=== PATIENT | female | born 1980 | race Caucasian/White ===

== ENCOUNTER 2017-10-12 09:33 | Emergency (ER) | payer OTHER ==
[2017-10-12] MEDS ORDERED: IPRATROPIUM-ALBUTEROL 3 ML NEB INHALATION STA (10:02)
--- NOTE | 2017-10-12 10:05 | ED ---
SOB HPI - General Chief Complaint: Shortness of Breath Stated Complaint: Difficulty Breathing Time Seen by Provider: 10/12/17 09:45 Source: patient Mode of arrival: ambulatory Limitations: no limitations - History of Present Illness Initial Comments: 37 year-old female patient presents to the emergency department today for complaints of cough, congestion, and shortness of breath. Patient states she has been sick for the last week. States that she currently has sore throat and right ear pain as well. Patient states she has had some mild nasal congestion. Patient states that she has developed wheezing. She does reports smoking a half pack per day. She denies any sputum production. Denies any known fever or chills. Denies any chest pain, sweats, nausea, vomiting, dizziness, or weakness. Patient also has diabetes and has been having difficulty getting her sugars under control area she is waiting for insulin delivery. Patient denies any recent rash, abdominal pain, diarrhea, constipation, back pain, numbness, tingling, hematuria, dysuria, urinary urgency, urinary frequency, headache, visual changes, or any other complaints. - Related Data Home Medications Medication Instructions Recorded Confirmed Escitalopram [Lexapro] 20 mg PO DAILY 10/12/17 10/12/17 Gabapentin [Neurontin] 800 mg PO TID 10/12/17 10/12/17 LORazepam [Ativan] 1 mg PO TID 10/12/17 10/12/17 Previous Rx's Medication Instructions Recorded Albuterol Sulfate [Proair Hfa] 1 - 2 puff INHALATION Q6HR PRN #1 10/12/17 inhaler Allergies Allergy/AdvReac Type Severity Reaction Status Date / Time No Known Allergies Allergy Verified 10/12/17 09:50 Review of Systems ROS Statement: Those systems with pertinent positive or pertinent negative responses have been documented in the HPI. ROS Other: All systems not noted in ROS Statement are negative. 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 Vital signs upon presentation are temperature 97.2F, pulse 78, respirations 18, blood pressure 153/79, pulse ox 97% on room air.) Eye exam: Present: normal appearance, PERRL, EOMI. Absent: scleral icterus, conjunctival injection, periorbital swelling ENT exam: Present: normal exam, normal oropharynx, mucous membranes moist Respiratory exam: Present: normal lung sounds bilaterally, wheezes (Scattered worse expiratory wheezing in posterior lung hansen.). Absent: respiratory distress, rales, rhonchi, stridor Cardiovascular Exam: Present: regular rate, normal rhythm, normal heart sounds. Absent: systolic murmur, diastolic murmur, rubs, gallop, clicks GI/Abdominal exam: Present: soft, normal bowel sounds. Absent: distended, tenderness, guarding, rebound, rigid Neurological exam: Present: alert, oriented X3, CN II-XII intact Psychiatric exam: Present: normal affect, normal mood Skin exam: Present: warm, dry, intact, normal color. Absent: rash Course Vital Signs 10/12/17 10/12/17 10/12/17 09:50 10:32 10:52 Temperature 97.2 F L Pulse Rate 78 71 73 Respiratory 18 Rate Blood Pressure 153/79 O2 Sat by Pulse 97 Oximetry 10/12/17 11:56 Temperature 98.6 F Pulse Rate 72 Respiratory 17 Rate Blood Pressure 148/72 O2 Sat by Pulse 97 Oximetry Medical Decision Making - Medical Decision Making 37-year-old female patient percents to the emergency department today for evaluation of cough, wheezing, shortness of breath. Physical examination did reveal some mild scattered expiratory wheezing in the posterior lung hansen. Oxygen saturation was within normal limits. Patient's respirations are even and unlabored. Patient was afebrile vital signs are stable. Chest x-ray showed no acute cardiopulmonary process. Patient has been sick with upper respiratory symptoms for the last week. Did discuss this could be an acute bronchitis. Did discuss smoking cessation. She does have albuterol and Symbicort inhalers at home. She is instructed to continue using these as directed. She is instructed to follow-up with her primary care physician for recheck in 1-2 days. Return parameters discussed in detail. She verbalizes understanding and agrees with this plan. - Lab Data Lab Results 10/12/17 Range/Units 10:05 POC Glucose (mg/dL) 150 H (75-99) mg/dL POC Glu Jumpbasting Lining Baster ID Ale Márquez - Radiology Data Radiology results: report reviewed, image reviewed Two-view x-ray of the chest shows lungs are clear. Pleural spaces are clear. Heart size is normal. Impression by Dr. Aguayo shows normal chest. Disposition Clinical Impression: Acute bronchitis Disposition: HOME SELF-CARE Condition: Good Instructions: Acute Bronchitis (ED) Additional Instructions: Use inhaler as directed. Follow-up with primary care physician for recheck in 1 -2 days. Return here immediately for any new, worsening, or concerning symptoms. Prescriptions: Albuterol Sulfate [Proair Hfa] 1 - 2 puff INHALATION Q6HR PRN #1 inhaler PRN Reason: Shortness Of Breath Is patient prescribed a controlled substance at d/c from ED?: No Referrals: Negra Valerio MD [Primary Care Provider] - 1-2 days Time of Disposition: 11:33
[2017-10-12 10:07] LABS: Glucose,Whole Blood 150 mg/dL (75-99)
--- NOTE | 2017-10-12 11:27 | XR ---
EXAMINATION TYPE: XR chest 2V DATE OF EXAM ORDERED: 10/12/2017 HISTORY: Pain. REFERENCE: None. FINDINGS: The lungs are clear. Pleural spaces are clear. Heart size is normal. IMPRESSION: NORMAL CHEST.
[2017-10-12 11:57] VITALS: BP 148/72; PULSE 72; RESP 17; TEMP 98.6
== END 2017-10-12 11:58 | disposition home or self-care (01) ==
LOC: EC 09:33
DX: J20.9 Acute bronchitis, unspecified (principal); H92.01 Otalgia, right ear; J02.9 Acute pharyngitis, unspecified; R09.81 Nasal congestion; E11.9 Type 2 diabetes mellitus without complications; F32.9 Major depressive disorder, single episode, unspecified; F41.9 Anxiety disorder, unspecified; F17.210 Nicotine dependence, cigarettes, uncomplicated; Z79.899 Other long term (current) drug therapy; Z85.828 Personal history of other malignant neoplasm of skin; Z98.890 Other specified postprocedural states
CPT/HCPCS: 36415; 71046; 94640; 99285

== ENCOUNTER 2017-10-13 12:19 | Inpatient (IN) | payer MEDICAID, OTHER ==
--- NOTE | 2017-10-13 13:26 | ED ---
General Adult HPI - General Chief complaint: Psychiatric Symptoms Stated complaint: Mental Health Time Seen by Provider: 10/13/17 12:35 Source: EMS, RN notes reviewed, old records reviewed Mode of arrival: EMS Limitations: no limitations - History of Present Illness Initial comments: This is a 37-year-old female the ER for evaluation. Patient presents time. [place]. Patient recently moved from relocated to the area. Patient coming in for psychiatricmedication for quite some time. - Related Data Home Medications Medication Instructions Recorded Confirmed Escitalopram [Lexapro] 20 mg PO DAILY 10/12/17 10/12/17 Gabapentin [Neurontin] 800 mg PO TID 10/12/17 10/12/17 LORazepam [Ativan] 1 mg PO TID 10/12/17 10/12/17 Previous Rx's Medication Instructions Recorded Albuterol Sulfate [Proair Hfa] 1 - 2 puff INHALATION Q6HR PRN #1 10/12/17 inhaler Allergies Allergy/AdvReac Type Severity Reaction Status Date / Time No Known Allergies Allergy Verified 10/12/17 09:50 Review of Systems ROS Statement: Those systems with pertinent positive or pertinent negative responses have been documented in the HPI. ROS Other: All systems not noted in ROS Statement are negative. 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 Absent: scleral icterus, conjunctival injection, periorbital swelling ENT exam: Present: normal exam, mucous membranes moist Neck exam: Present: normal inspection. Absent: tenderness, meningismus, lymphadenopathy Respiratory exam: Present: normal lung sounds bilaterally. Absent: respiratory distress, wheezes, rales, rhonchi, stridor Cardiovascular Exam: Present: regular rate, normal rhythm, normal heart sounds. Absent: systolic murmur, diastolic murmur, rubs, gallop, clicks GI/Abdominal exam: Present: soft, normal bowel sounds. Absent: distended, tenderness, guarding, rebound, rigid Extremities exam: Present: normal inspection, full ROM, normal capillary refill. Absent: tenderness, pedal edema, joint swelling, calf tenderness Back exam: Present: normal inspection Neurological exam: Present: alert, oriented X3, CN II-XII intact Psychiatric exam: Present: normal affect, normal mood Skin exam: Present: warm, dry, intact, normal color. Absent: rash Course Vital Signs 10/13/17 12:34 Temperature 97.1 F L Pulse Rate 91 Respiratory 20 Rate Blood Pressure 146/70 O2 Sat by Pulse 97 Oximetry - Reevaluation(s) Reevaluation #1: 10/13/17 13:26 Medically clear for psychiatric evaluation Medical Decision Making - Medical Decision Making 37 female seen and evaluated with psychiatry, will admit for psychiatric evaluation and patient treatment - Lab Data Result diagrams: 10/13/17 13:43 10/13/17 13:43 Lab Results 10/13/17 10/13/17 10/13/17 Range/Units 13:35 13:35 13:43 WBC (3.8-10.6) k/uL RBC (3.80-5.40) m/uL Hgb (11.4-16.0) gm/dL Hct (34.0-46.0) % MCV (80.0-100.0) fL MCH (25.0-35.0) pg MCHC (31.0-37.0) g/dL RDW (11.5-15.5) % Plt Count (150-450) k/uL Neutrophils % % Lymphocytes % % Monocytes % % Eosinophils % % Basophils % % Neutrophils # (1.3-7.7) k/uL Lymphocytes # (1.0-4.8) k/uL Monocytes # (0-1.0) k/uL Eosinophils # (0-0.7) k/uL Basophils # (0-0.2) k/uL Sodium 148 H (137-145) mmol/L Potassium 4.4 (3.5-5.1) mmol/L Chloride 112 H (98-107) mmol/L Carbon Dioxide 21 L (22-30) mmol/L Anion Gap 15 mmol/L BUN 16 (7-17) mg/dL Creatinine 0.60 (0.52-1.04) mg/dL Est GFR (CKD-EPI)AfAm >90 (>60 ml/min/1.73 sqM) Est GFR (CKD-EPI)NonAf >90 (>60 ml/min/1.73 sqM) Glucose 109 H (74-99) mg/dL Calcium 9.7 (8.4-10.2) mg/dL Urine Color Light Yellow Urine Appearance Clear (Clear) Urine pH 5.5 (5.0-8.0) Ur Specific [place] 1.010 (1.001-1.035) Urine Protein Negative (Negative) Urine Glucose (UA) Negative (Negative) Urine Ketones Negative (Negative) Urine Blood Moderate H (Negative) Urine Nitrite Negative (Negative) Urine Bilirubin Negative (Negative) Urine Urobilinogen <2.0 (<2.0) mg/dL Ur Leukocyte Esterase Negative (Negative) Urine RBC 13 H (0-5) /hpf Urine WBC 2 (0-5) /hpf Ur Squamous Epith Cells 1 (0-4) /hpf Urine Bacteria Rare H (None) /hpf Urine HCG, Qual Not Detected (Not Detectd) Salicylates <1.0 mg/dL Urine Opiates Screen Not Detected (NotDetected) Ur Oxycodone Screen Not Detected (NotDetected) Urine Methadone Screen Not Detected (NotDetected) Ur Propoxyphene Screen Not Detected (NotDetected) Acetaminophen <10.0 ug/mL Ur Barbiturates Screen Not Detected (NotDetected) U Tricyclic Antidepress Not Detected (NotDetected) Ur Phencyclidine Scrn Not Detected (NotDetected) Ur Amphetamines Screen Not Detected (NotDetected) U Methamphetamines Scrn Not Detected (NotDetected) U Benzodiazepines Scrn Not Detected (NotDetected) Urine Cocaine Screen Not Detected (NotDetected) U Marijuana (THC) Screen Detected H (NotDetected) Serum Alcohol 76 mg/dL 10/13/17 Range/Units 13:43 WBC 8.2 (3.8-10.6) k/uL RBC 4.61 (3.80-5.40) m/uL Hgb 13.9 (11.4-16.0) gm/dL Hct 42.9 (34.0-46.0) % MCV 93.1 (80.0-100.0) fL MCH 30.1 (25.0-35.0) pg MCHC 32.3 (31.0-37.0) g/dL RDW 13.9 (11.5-15.5) % Plt Count 282 (150-450) k/uL Neutrophils % 50 % Lymphocytes % 37 % Monocytes % 6 % Eosinophils % 4 % Basophils % 1 % Neutrophils # 4.1 (1.3-7.7) k/uL Lymphocytes # 3.1 (1.0-4.8) k/uL Monocytes # 0.5 (0-1.0) k/uL Eosinophils # 0.3 (0-0.7) k/uL Basophils # 0.1 (0-0.2) k/uL Sodium (137-145) mmol/L Potassium (3.5-5.1) mmol/L Chloride (98-107) mmol/L Carbon Dioxide (22-30) mmol/L Anion Gap mmol/L BUN (7-17) mg/dL Creatinine (0.52-1.04) mg/dL Est GFR (CKD-EPI)AfAm (>60 ml/min/1.73 sqM) Est GFR (CKD-EPI)NonAf (>60 ml/min/1.73 sqM) Glucose (74-99) mg/dL Calcium (8.4-10.2) mg/dL Urine Color Urine Appearance (Clear) Urine pH (5.0-8.0) Ur Specific [place] (1.001-1.035) Urine Protein (Negative) Urine Glucose (UA) (Negative) Urine Ketones (Negative) Urine Blood (Negative) Urine Nitrite (Negative) Urine Bilirubin (Negative) Urine Urobilinogen (<2.0) mg/dL Ur Leukocyte Esterase (Negative) Urine RBC (0-5) /hpf Urine WBC (0-5) /hpf Ur Squamous Epith Cells (0-4) /hpf Urine Bacteria (None) /hpf Urine HCG, Qual (Not Detectd) Salicylates mg/dL Urine Opiates Screen (NotDetected) Ur Oxycodone Screen (NotDetected) Urine Methadone Screen (NotDetected) Ur Propoxyphene Screen (NotDetected) Acetaminophen ug/mL Ur Barbiturates Screen (NotDetected) U Tricyclic Antidepress (NotDetected) Ur Phencyclidine Scrn (NotDetected) Ur Amphetamines Screen (NotDetected) U Methamphetamines Scrn (NotDetected) U Benzodiazepines Scrn (NotDetected) Urine Cocaine Screen (NotDetected) U Marijuana (THC) Screen (NotDetected) Serum Alcohol mg/dL Disposition Clinical Impression: Acute anxiety, Suicidal ideation, Psychosis Disposition: TRANSFER TO PSYCH HOSP/UNIT Condition: Fair Referrals: Negra Valerio MD [Primary Care Provider] - 1-2 days
[2017-10-13] MEDS ORDERED: LORazepam 1 MG TAB PO STA (13:28)
[2017-10-13 13:46] LABS: Appearance,Urine Clear (Clear); Bacteria,Urine Rare /hpf; Bilirubin,Urine Negative (Negative); Blood,Urine Moderate (Negative); Color,Urine Light Yellow; Glucose,Urine (UA) Negative (Negative); Ketones,Urine Negative (Negative); Leukocyte Esterase,Urine Negative (Negative); Nitrite,Urine Negative (Negative); PH, Urine 5.5 (5.0-8.0); Protein,Urine Negative (Negative); RBC,Urine 13 /hpf (0-5); Squamous Epithelial Cell,Urine 1 /hpf (0-4); Urobilinogen,Urine <2.0 mg/dL (<2.0); WBC,Urine 2 /hpf (0-5)
[2017-10-13 13:48] LABS: Basophils # (A) 0.1 k/uL (0-0.2); Basophils % (A) 1 %; Eosinophils # (A) 0.3 k/uL (0-0.7); Eosinophils % (A) 4 %; HCT 42.9 % (34.0-46.0); HGB 13.9 gm/dL (11.4-16.0); Lymphocytes # (A) 3.1 k/uL (1.0-4.8); Lymphocytes % (A) 37 %; MCH 30.1 pg (25.0-35.0); MCHC 32.3 g/dL (31.0-37.0); MCV 93.1 fL (80.0-100.0); Mean Platelet Volume 7.4; Monocytes # (A) 0.5 k/uL (0-1.0); Monocytes % (A) 6 %; Neutrophils # (A) 4.1 k/uL (1.3-7.7); Neutrophils % (A) 50 %; Platelet Count 282 k/uL (150-450); RBC 4.61 m/uL (3.80-5.40); RDW 13.9 % (11.5-15.5); WBC 8.2 k/uL (3.8-10.6)
[2017-10-13 13:52] LABS: Amphetamine Screen,Urine Not Detected (NotDetected); Barbiturate Screen,Urine Not Detected (NotDetected); Benzodiazepines Screen,Urine Not Detected (NotDetected); Cocaine Screen,Urine Not Detected (NotDetected); Methadone Screen, Urine Not Detected (NotDetected); Opiate Screen,Urine Not Detected (NotDetected); Oxycodone Screen, Urine Not Detected (NotDetected); Phencyclidine Screen,Urine Not Detected (NotDetected); Tricyclic Antidepressant,Urine Not Detected (NotDetected); Urn Cannabinoid Scrn Detected (NotDetected)
[2017-10-13 14:04] LABS: Acetaminophen <10.0 ug/mL; Alcohol 76 mg/dL; Anion Gap 15 mmol/L; Blood Urea Nitrogen 16 mg/dL (7-17); Calcium 9.7 mg/dL (8.4-10.2); Carbon Dioxide 21 mmol/L (22-30); Chloride 112 mmol/L (98-107); Glucose 109 mg/dL (74-99); Potassium 4.4 mmol/L (3.5-5.1); Salicylate <1.0 mg/dL; Sodium 148 mmol/L (137-145)
[2017-10-13] MEDS ORDERED: ACETAMINOPHEN TAB 325 MG TAB PO PRN (16:23)
[2017-10-13] MEDS ORDERED: LORazepam 1 MG TAB PO PRN (16:23)
[2017-10-13] MEDS ORDERED: ZIPRASIDONE 20 MG VIAL IM PRN (16:23)
[2017-10-13] MEDS ORDERED: MAG HYDROX/AL HYDROX/SIMETH 30 ML CUP PO PRN (16:23)
[2017-10-13] MEDS ORDERED: MAGNESIUM HYDROXIDE 2,400 MG/10 ML CUP PO PRN (16:23)
[2017-10-13] MEDS ORDERED: ESCITALOPRAM 20 MG TAB PO SCH (16:30)
[2017-10-13 18:07] LABS: Glucose,Whole Blood 117 mg/dL (75-99)
[2017-10-13 18:48] VITALS: BMI 31.9
[2017-10-13] MEDS ORDERED: NICOTINE 21MG/24HR PATCH TRANSDERM SCH (20:00)
[2017-10-13 20:07] LABS: Glucose,Whole Blood 108 mg/dL (75-99)
[2017-10-13] MEDS ORDERED: traZODone HCL 100 MG TAB PO ONE (20:37)
[2017-10-13] MEDS ORDERED: PNEUMOCOCCAL VACC-PNEUMOVAX 23 25 MCG/0.5 ML VIAL IM ONE (21:00)
[2017-10-13] MEDS ORDERED: INFLUENZA VACCINE (6 MOS+) 60 MCG/0.5 ML SYRINGE IM ONE (21:00)
[2017-10-13] MEDS ORDERED: MELATONIN 3 MG TABLET PO ONE (21:20)
[2017-10-14 07:02] LABS: Glucose,Whole Blood 119 mg/dL (75-99)
[2017-10-14] MEDS ORDERED: NICOTINE 14MG/24HR PATCH TRANSDERM SCH (09:00)
[2017-10-14] MEDS ORDERED: INFLUENZA VACCINE (6 MOS+) 60 MCG/0.5 ML SYRINGE IM ONE (09:00)
[2017-10-14] MEDS ORDERED: PNEUMOCOCCAL VACC-PNEUMOVAX 23 25 MCG/0.5 ML VIAL IM ONE (09:00)
[2017-10-14] MEDS: DIVALPROEX 500 MG TABLET.DR PO SCH ×2 (09:09→22:11)
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
[2017-10-14] MEDS: NICOTINE 21MG/24HR PATCH TRANSDERM SCH (09:22)
[2017-10-14 12:50] LABS: Hemoglobin A1C 6.3 % (4.0-6.0)
[2017-10-14 13:02] LABS: Glucose,Whole Blood 121 mg/dL (75-99)
--- NOTE | 2017-10-14 13:07 | P.CONS ---
History of Present Illness - Reason for Consult Medical clearance - History of Present Illness 37-year-old female was admitted to psychiatric for for bipolar disorder. Patient denied any symptoms at this point of time but patient does have chronic multiple medical problems. Patient does have hyperlipidemia with cholesterol 120 nightly counseling was provided and patient will need light and family again about a month after diet management and he continues to elevated LDL may need statin at the time because of her multiple medical problems including diabetes mellitus and hypertension. Patient does have type 2 diabetes mellitus does have history of hypertension does have history of COPD is comparing of cough without any sputum production denied any shortness of breath patient is on Symbicort and albuterol which will be continued not require any antiemetics at this point of time patient is requesting symptomatic cough medicine. Review of Systems REVIEW OF SYSTEMS: CONSTITUTIONAL: No fever, no malaise, no fatigue. HEENT: No recent visual problems or hearing problems. Denied any sore throat. CARDIOVASCULAR: No chest pain, orthopnea, PND, no palpitations, no syncope. PULMONARY: No shortness of breath, no hemoptysis. GASTROINTESTINAL: No diarrhea, no nausea, no vomiting, no abdominal pain. Normoactive bowel sounds. NEUROLOGICAL: No headaches, no weakness, no numbness. HEMATOLOGICAL: Denies any bleeding or petechiae. GENITOURINARY: Denies any burning micturition, frequency, or urgency. MUSCULOSKELETAL/RHEUMATOLOGICAL: Denies any joint pain, swelling, or any muscle pain. ENDOCRINE: Denies any polyuria or polydipsia. The rest of the 14-point review of systems is negative. 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, scolosis History of Any Multi-Drug Resistant Organisms: None Reported Additional Past Surgical History / Comment(s): left arm Past Anesthesia/Blood Transfusion Reactions: No Reported Reaction Past Psychological History: Anxiety, Depression Smoking Status: Current every day smoker Past Alcohol Use History: None Reported Additional Past Alcohol Use History / Comment(s): occasional once a month 4 drinks Past Drug Use History: Marijuana Additional Drug Use History / Comment(s): occasional Medications and Allergies Home Medications Medication Instructions Recorded Confirmed Type Albuterol Sulfate [Proair Hfa] 1 - 2 puff INHALATION Q6HR PRN #1 10/12/17 Rx inhaler Escitalopram [Lexapro] 20 mg PO DAILY 10/12/17 10/14/17 History Gabapentin [Neurontin] 800 mg PO TID 10/12/17 10/14/17 History Budesonide/Formoterol Fumarate 2 puff INHALATION RT-BID 10/14/17 10/14/17 History [Symbicort 80-4.5 Mcg Inhaler] Hydrocodone/Acetaminophen [[place] 1 tab PO Q6HR PRN 10/14/17 10/14/17 History 5-325] Insulin Glargine [Lantus] 25 unit SQ DAILY 10/14/17 10/14/17 History Lisinopril [Prinivil] 5 mg PO DAILY 10/14/17 10/14/17 History Naproxen 500 mg PO BID 10/14/17 10/14/17 History Promethazine HCl/Codeine 10 ml PO Q6H PRN 10/14/17 10/14/17 History [Prometh-Codein 6.25-10 mg/5 ml] traZODone HCL 50 mg PO HS 10/14/17 10/14/17 History Allergies Allergy/AdvReac Type Severity Reaction Status Date / Time No Known Allergies Allergy Verified 10/12/17 09:50 Physical Exam Vitals: Vital Signs Temp Pulse Pulse Resp BP BP Pulse Ox 10/14/17 06:22 97.8 F 65 16 130/62 10/13/17 20:27 83 16 129/72 10/13/17 18:32 98 F 87 16 112/70 10/13/17 16:47 98 F 90 18 126/80 96 Intake and Output 10/13/17 10/14/17 10/14/17 22:59 06:59 14:59 Other: Weight 79.3 kg PHYSICAL EXAMINATION: GENERAL: The patient is alert and oriented x3, not in any acute distress. Well developed, well nourished. HEENT: Pupils are round and equally reacting to light. EOMI. No scleral icterus. No conjunctival pallor. Normocephalic, atraumatic. No pharyngeal erythema. No thyromegaly. CARDIOVASCULAR: S1 and S2 present. No murmurs, rubs, or gallops. PULMONARY: Chest is clear to auscultation, no wheezing or crackles. ABDOMEN: Soft, nontender, nondistended, normoactive bowel sounds. No palpable organomegaly. MUSCULOSKELETAL: No joint swelling or deformity. EXTREMITIES: No cyanosis, clubbing, or pedal edema. NEUROLOGICAL: Gross neurological examination did not reveal any focal deficits. SKIN: No rashes. Results CBC & Chem 7: 10/13/17 13:43 10/13/17 13:43 Labs: Abnormal Lab Results - Last 24 Hours (Table) 10/13/17 10/13/17 10/13/17 Range/Units 13:35 13:42 13:43 Sodium 148 H (137-145) mmol/L Chloride 112 H (98-107) mmol/L Carbon Dioxide 21 L (22-30) mmol/L Glucose 109 H (74-99) mg/dL POC Glucose (mg/dL) (75-99) mg/dL Triglycerides 326 H (<150) mg/dL Cholesterol 239 H (<200) mg/dL LDL Cholesterol, Calc 120 H (0-99) mg/dL Urine Blood Moderate H (Negative) Urine RBC 13 H (0-5) /hpf Urine Bacteria Rare H (None) /hpf U Marijuana (THC) Screen Detected H (NotDetected) 10/13/17 10/13/17 10/14/17 Range/Units 18:03 20:05 06:59 Sodium (137-145) mmol/L Chloride (98-107) mmol/L Carbon Dioxide (22-30) mmol/L Glucose (74-99) mg/dL POC Glucose (mg/dL) 117 H 108 H 119 H (75-99) mg/dL Triglycerides (<150) mg/dL Cholesterol (<200) mg/dL LDL Cholesterol, Calc (0-99) mg/dL Urine Blood (Negative) Urine RBC (0-5) /hpf Urine Bacteria (None) /hpf U Marijuana (THC) Screen (NotDetected) 10/14/17 Range/Units 13:00 Sodium (137-145) mmol/L Chloride (98-107) mmol/L Carbon Dioxide (22-30) mmol/L Glucose (74-99) mg/dL POC Glucose (mg/dL) 121 H (75-99) mg/dL Triglycerides (<150) mg/dL Cholesterol (<200) mg/dL LDL Cholesterol, Calc (0-99) mg/dL Urine Blood (Negative) Urine RBC (0-5) /hpf Urine Bacteria (None) /hpf U Marijuana (THC) Screen (NotDetected) Assessment and Plan Plan: -Cough: Secondary to chronic bronchitis with Levaquin and medics at this time point of time. -COPD without any acute exacerbation continue with inhaled steroids and albuterol. -Type 2 diabetes mellitus patient blood sugars are well controlled on home regimen which is to be continued -Hypertension: Continue with the LESTER inhibitor LESTER inhibitor is probably being used for its nephro protective properties because of her history of type 2 diabetes mellitus. -While hyperlipidemia dietary management -Marijuana use: Counseling was provided -The coronary abuse: Counseling was provided -Bipolar disorder management as per primary service -History of synovitis sarcoma of the left arm which is in remission
[2017-10-14] MEDS: guaiFENesin-DM 100-10MG/5ML 10 ML CUP PO PRN ×2 (13:22→20:23)
[2017-10-14] MEDS: HYDROcodone/APAP 5-325MG 1 EACH TAB PO PRN ×2 (13:23→19:51)
[2017-10-14 17:52] LABS: Glucose,Whole Blood 105 mg/dL (75-99)
[2017-10-14] MEDS: NAPROXEN 250 MG TAB PO SCH (20:20)
[2017-10-14 20:28] LABS: Glucose,Whole Blood 112 mg/dL (75-99)
[2017-10-14] MEDS ORDERED: QUEtiapine 50 MG TAB PO SCH (21:00)
[2017-10-14] MEDS: SYMBICORT 80-4.5 MCG INHALER INHALATION SCH (22:17)
[2017-10-15] MEDS: HYDROcodone/APAP 5-325MG 1 EACH TAB PO PRN ×4 (02:12→20:15)
[2017-10-15] MEDS: guaiFENesin-DM 100-10MG/5ML 10 ML CUP PO PRN ×3 (03:45→20:15)
[2017-10-15 05:45] LABS: Glucose,Whole Blood 138 mg/dL (75-99)
[2017-10-15] MEDS: NICOTINE 21MG/24HR PATCH TRANSDERM SCH (08:04)
[2017-10-15] MEDS: LISINOPRIL 5 MG TAB PO SCH (08:05)
[2017-10-15] MEDS: DIVALPROEX 500 MG TABLET.DR PO SCH ×2 (08:05→20:15)
[2017-10-15] MEDS: NAPROXEN 250 MG TAB PO SCH ×2 (08:05→20:14)
[2017-10-15 08:09] VITALS: RESP 18
[2017-10-15] MEDS ORDERED: INSULIN DETEMIR 100 UNIT/ML 10 ML VIAL SQ SCH (09:00)
--- NOTE | 2017-10-15 09:20 | P.PN ---
Progress Note - Text Progress Note Date: 10/15/17 Patient was seen for a follow-up examination. She said she did not sleep well last night. She also has toothache which is chronic, for which the physician who gave her physical examination ordered Blanca. Patient is asking for a higher dose. She was advised that opiates are not recommended for chronic pain and so I cannot increase the dose, but, can order Motrin. She said she doesn't want to take Motrin and will take only Blanca. She also reports of chronic pain from "fibromyalgia"and numbness of her left fourth and fifth digits of the hand from surgery on her forearm. She insists that Neurontin helps with the numbness also. This is a white ambulatory female with good hygiene. He does not show any psychomotor agitation or retardation. Her speech is spontaneous and goal- directed. Her mood is cheerful and affect is appropriate. But she says her pain is about 7 or 8 out of 10. She continues to deny suicide and homicide thoughts. She denies hallucinations and delusional thinking. Her sensorium is clear. Plan: Increase Seroquel 200 mg at bedtime, restart on Neurontin 800 mg 3 times a day, continue groups and other therapies, patient was advised to discuss her discharge planning with social media strategist since she is homeless.
[2017-10-15] MEDS: GABAPENTIN 400 MG CAP PO SCH ×3 (09:26→21:51)
[2017-10-15] MEDS: SYMBICORT 80-4.5 MCG INHALER INHALATION SCH ×2 (09:31→21:11)
[2017-10-15 12:56] LABS: Glucose,Whole Blood 104 mg/dL (75-99)
[2017-10-15] MEDS: INSULIN ASPART 100 UNIT/ML 1 ML 10 ML VIAL SQ SCH ×3 (13:06→21:53)
[2017-10-15 17:34] LABS: Glucose,Whole Blood 108 mg/dL (75-99)
[2017-10-15 20:31] LABS: Glucose,Whole Blood 114 mg/dL (75-99)
[2017-10-15] MEDS ORDERED: QUEtiapine 100 MG TAB PO SCH (21:00)
[2017-10-16] MEDS: guaiFENesin-DM 100-10MG/5ML 10 ML CUP PO PRN (03:23)
[2017-10-16] MEDS: HYDROcodone/APAP 5-325MG 1 EACH TAB PO PRN ×2 (03:24→09:21)
[2017-10-16 06:12] LABS: Glucose,Whole Blood 140 mg/dL (75-99)
[2017-10-16 06:37] VITALS: TEMP 98
[2017-10-16] MEDS: INSULIN ASPART 100 UNIT/ML 1 ML 10 ML VIAL SQ SCH (07:49)
[2017-10-16] MEDS: NICOTINE 21MG/24HR PATCH TRANSDERM SCH (07:58)
[2017-10-16] MEDS: GABAPENTIN 400 MG CAP PO SCH (07:59)
[2017-10-16] MEDS: NAPROXEN 250 MG TAB PO SCH (07:59)
[2017-10-16] MEDS: LISINOPRIL 5 MG TAB PO SCH (08:00)
[2017-10-16] MEDS: DIVALPROEX 500 MG TABLET.DR PO SCH (08:00)
[2017-10-16 08:54] VITALS: BP 117/61; PULSE 83
[2017-10-16] MEDS: SYMBICORT 80-4.5 MCG INHALER INHALATION SCH (08:57)
--- NOTE | 2017-10-16 09:30 | P.DS ---
Providers Date of admission: 10/13/17 16:13 Expected date of discharge: 10/16/17 Attending physician: Vlad Sutton Consults: 10/13/17 17:29 Consult Physician Routine Consulting Provider: Hali Leach Consult Reason/Comments: H&P for mental health admission Do you want consulting provider notified?: Yes Primary care physician: [facility] Course: Patient had her psychiatric evaluation, physical examination and psychosocial evaluation. After psychiatric evaluation it was agreed to start her on Seroquel 50 mg at bedtime and Depakote 500 mg twice a day for "mood stabilization". Patient did not sleep well on 50 mg of Seroquel and so it was increased to 100 mg at bedtime. With this she was able to sleep well. Patient continued to request/demand narcotics benzodiazepines for pain, anxiety etc. She also demanded to be on Neurontin 800 mg 3 times a day which she said was taking prior to coming to hospital. Apparently she reported to the doctor who gave her physical examination that she was on insulin for diabetes even though her blood sugar was not more than 150 here at the hospital and insulin was prescribed, convinced or demanded to be on narcotics at the same time with the complaint of to take from a root canal that was done many years ago. She also demanded to be on narcotics when she leaves the hospital. She was advised that I cannot do this since it is for a chronic condition of tooth which cannot be saved and she needs to decide whether she would get the tooth extracted or get it repaired which she needs to discuss with her dentist. She reluctantly agreed. She was quite demanding with her request for drugs with abuse potential. However she became free of "suicide thoughts", said she made up with her boyfriend, has a place to live now and is ready to go home. In view of all these it was agreed to discharge her. Condition on discharge: This is a white ambulatory female with good hygiene. She does not show any psychomotor agitation or retardation. Her speech is spontaneous relevant and goal-directed. Her mood is cheerful and affect is appropriate. She denies hallucinations, delusional thinking, suicide and homicide thoughts. She is well oriented with good memory concentration general knowledge etc. her insight and judgment have improved. However she is demanding to be on narcotics and benzodiazepines. Diagnosis on discharge: Adjustment disorder, unspecified F 43.20. Cannabis use disorder severe F 12.20. Alcohol use disorder moderate F 10.20. 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 Probable malingering Z 76.5. Patient was advised and agreed to take her medications as prescribed, not to drive or operate missionary if she feels sleepy, not to drink alcohol or abuse drugs, to seek counseling regarding drugs and alcohol and to learn better coping skills, to inform her doctor if she gets , get CBC, AST, ALT and Depakote level next week 10 hours after the last dose of Depakote, to call her psychiatrist or therapist if she gets suicidal thoughts or her mood gets labile and if he cannot get hold of them to go to the nearest ER. Patient Condition at Discharge: Stable Plan - Discharge Summary Discharge Rx Participant: No New Discharge Prescriptions: New Divalproex [Depakote] 500 mg PO BID 30 Days #60 tablet. Gabapentin [Neurontin] 800 mg PO TID 30 Days #90 cap guaiFENesin-DM 100-10MG/5ML [Robitussin DM] 10 ml PO Q6H PRN cup PRN Reason: Cough Lisinopril [Zestril] 5 mg PO DAILY 30 Days #30 tab Naproxen [Naprosyn] 500 mg PO BID 30 Days #60 tab QUEtiapine [SEROquel] 100 mg PO HS 30 Days #30 tab Continue Albuterol Sulfate [Proair Hfa] 1 - 2 puff INHALATION Q6HR PRN 30 Days #1 inhaler PRN Reason: Shortness Of Breath Budesonide/Formoterol Fumarate [Symbicort 80-4.5 Mcg Inhaler] 2 puff INHALATION RT-BID 30 Days #2 hfa.aer.ad Insulin Glargine [Lantus] 25 unit SQ DAILY 30 Days #2 vial Discontinued Escitalopram [Lexapro] 20 mg PO DAILY Gabapentin [Neurontin] 800 mg PO TID Hydrocodone/Acetaminophen [[place] 5-325] 1 tab PO Q6HR PRN PRN Reason: Pain Promethazine HCl/Codeine [Prometh-Codein 6.25-10 mg/5 ml] 10 ml PO Q6H PRN PRN Reason: Cough traZODone HCL 50 mg PO HS Naproxen 500 mg PO BID Lisinopril [Prinivil] 5 mg PO DAILY Discharge Medication List Albuterol Sulfate [Proair Hfa] 1 - 2 puff INHALATION Q6HR PRN 30 Days #1 inhaler 10/16/17 [Rx] Budesonide/Formoterol Fumarate [Symbicort 80-4.5 Mcg Inhaler] 2 puff INHALATION RT-BID 30 Days #2 hfa.aer.ad 10/16/17 [Rx] Divalproex [Depakote] 500 mg PO BID 30 Days #60 tablet.dr 10/16/17 [Rx] Gabapentin [Neurontin] 800 mg PO TID 30 Days #90 cap 10/16/17 [Rx] Insulin Glargine [Lantus] 25 unit SQ DAILY 30 Days #2 vial 10/16/17 [Rx] Lisinopril [Zestril] 5 mg PO DAILY 30 Days #30 tab 10/16/17 [Rx] Naproxen [Naprosyn] 500 mg PO BID 30 Days #60 tab 10/16/17 [Rx] QUEtiapine [SEROquel] 100 mg PO HS 30 Days #30 tab 10/16/17 [Rx] guaiFENesin-DM 100-10MG/5ML [Robitussin DM] 10 ml PO Q6H PRN cup 10/16/17 [Rx] Follow up Appointment(s)/Referral(s): Negra Valerio MD [Primary Care Provider] - 1-2 days Ambulatory/Diagnostic Orders: ALT [LAB.AMB] Time Frame: 1 Week, Facility: [facility], Location: Laboratory Department AST [LAB.AMB] Location: Determined By Patient Complete Blood Count w/diff [LAB.AMB] Location: Determined By Patient
== END 2017-10-16 11:30 | disposition home or self-care (01) | DRG 882 ==
LOC: EC 12:19 → SUPCPDRO 12:19 → 3MHU 16:13
PROVIDERS: ADMIT Psychiatry & Neurology Psychiatry; ATTEND Psychiatry & Neurology Psychiatry
DX: F43.20 Adjustment disorder, unspecified (principal); F12.20 Cannabis dependence, uncomplicated; F10.20 Alcohol dependence, uncomplicated; F60.9 Personality disorder, unspecified; Z76.5 Malingerer [conscious simulation]; E11.9 Type 2 diabetes mellitus without complications; E78.5 Hyperlipidemia, unspecified; Z59.0 Homelessness; F10.10 Alcohol abuse, uncomplicated; F17.200 Nicotine dependence, unspecified, uncomplicated; G89.29 Other chronic pain; I10 Essential (primary) hypertension; M41.82 Other forms of scoliosis, cervical region; M41.87 Other forms of scoliosis, lumbosacral region; M79.7 Fibromyalgia; Z79.4 Long term (current) use of insulin; Z79.899 Other long term (current) drug therapy; Z83.3 Family history of diabetes mellitus; Z91.5 Personal history of self-harm; Z79.891 Long term (current) use of opiate analgesic
CPT/HCPCS: 36415; 80048; 80061; 80306; 80320; 81001; 81025; 82075; 83036; 83520; 84443; 85025; 90686; 90732; 94640; 99285

== ENCOUNTER 2017-10-19 21:10 | Emergency (ER) | payer OTHER ==
[2017-10-19 21:23] LABS: Glucose,Whole Blood 114 mg/dL (75-99)
--- NOTE | 2017-10-19 21:56 | ED ---
Psych HPI - General Chief Complaint: Psychiatric Symptoms Stated Complaint: Anxiety Time Seen by Provider: 10/19/17 21:32 Source: patient Mode of arrival: EMS - History of Present Illness Initial Comments: 37-year-old female patient presents the emergency department today for evaluation of increased anxiety and panic. Patient states that she was discharged from our mental health unit a couple of days ago. States that she has been unable to get her prescriptions filled. She states that this afternoon she started to feel panicky. Patient states that she is hearing voices and they're telling her she is worthless. She denies any current suicidal or homicidal ideation however states that after she becomes panicky she generally starts to have suicidal thoughts. She denies any drug or alcohol use. States that she is not sleeping due to the symptoms. Denies any current physical symptoms. Patient denies any recent rash, fever, chills, shortness breath, chest pain, abdominal pain, nausea, vomiting, diarrhea, constipation, back pain, numbness, tingling, dizziness, weakness, hematuria, dysuria, urinary urgency, urinary frequency, headache, visual changes, or any other complaints. - Related Data Previous Rx's Medication Instructions Recorded Albuterol Sulfate [Proair Hfa] 1 - 2 puff INHALATION Q6HR PRN 30 10/16/17 Days #1 inhaler Budesonide/Formoterol Fumarate 2 puff INHALATION RT-BID 30 Days 10/16/17 [Symbicort 80-4.5 Mcg Inhaler] #2 hfa.aer.ad Divalproex [Depakote] 500 mg PO BID 30 Days #60 tablet. 10/16/17 Gabapentin [Neurontin] 800 mg PO TID 30 Days #90 cap 10/16/17 Lisinopril [Zestril] 5 mg PO DAILY 30 Days #30 tab 10/16/17 Naproxen [Naprosyn] 500 mg PO BID 30 Days #60 tab 10/16/17 QUEtiapine [SEROquel] 100 mg PO HS 30 Days #30 tab 10/16/17 guaiFENesin-DM 100-10MG/5ML 10 ml PO Q6H PRN cup 10/16/17 [Robitussin DM] QUEtiapine [SEROquel] 100 mg PO HS #1 tablet 10/19/17 Allergies Allergy/AdvReac Type Severity Reaction Status Date / Time No Known Allergies Allergy Verified 10/19/17 21:19 Review of Systems ROS Statement: Those systems with pertinent positive or pertinent negative responses have been documented in the HPI. ROS Other: All systems not noted in ROS Statement are negative. 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 Vital signs upon presentation are temperature 99.2F, pulse 83, respirations 18, blood pressure 150/65, pulse ox 99% on room air.) Eye exam: Present: normal appearance, PERRL, EOMI. Absent: scleral icterus, conjunctival injection, periorbital swelling ENT exam: Present: normal exam, normal oropharynx, mucous membranes moist Respiratory exam: Present: normal lung sounds bilaterally. Absent: respiratory distress, wheezes, rales, rhonchi, stridor Cardiovascular Exam: Present: regular rate, normal rhythm, normal heart sounds. Absent: systolic murmur, diastolic murmur, rubs, gallop, clicks GI/Abdominal exam: Present: soft, normal bowel sounds. Absent: distended, tenderness, guarding, rebound, rigid Neurological exam: Present: alert, oriented X3, CN II-XII intact Psychiatric exam: Present: normal affect, normal mood Skin exam: Present: warm, dry, intact, normal color. Absent: rash Course Vital Signs 10/19/17 10/19/17 21:15 23:20 Temperature 99.2 F 97.6 F Pulse Rate 83 66 Respiratory 18 16 Rate Blood Pressure 150/65 128/60 O2 Sat by Pulse 99 100 Oximetry Medical Decision Making - Medical Decision Making 37 old female patient presents to the emergency department today for evaluation of increased anxiety and panic. Physical examination is unremarkable. Patient was evaluated by emergency psychiatric services who believes patient does not meet inpatient criteria at this time. Patient was unable to get her medications from the pharmacy. We will give her 1 dose of Seroquel here in the department and a prescription for 1 tablet until she can get her medications on Saturday. Return parameters were discussed in detail. She verbalizes understanding and agrees with this plan per - Lab Data Lab Results 10/19/17 10/19/17 Range/Units 21:21 21:33 POC Glucose (mg/dL) 114 H (75-99) mg/dL POC Glu Mold Shifter ID Lelia Fox Urine Opiates Screen Not Detected (NotDetected) Ur Oxycodone Screen Not Detected (NotDetected) Urine Methadone Screen Not Detected (NotDetected) Ur Propoxyphene Screen Not Detected (NotDetected) Ur Barbiturates Screen Not Detected (NotDetected) U Tricyclic Antidepress Not Detected (NotDetected) Ur Phencyclidine Scrn Not Detected (NotDetected) Ur Amphetamines Screen Not Detected (NotDetected) U Methamphetamines Scrn Not Detected (NotDetected) U Benzodiazepines Scrn Not Detected (NotDetected) Urine Cocaine Screen Detected H (NotDetected) U Marijuana (THC) Screen Detected H (NotDetected) Disposition Clinical Impression: Anxiety Disposition: HOME SELF-CARE Condition: Good Instructions: Anxiety (ED) Additional Instructions: Take medications as directed. group exercise class instructor prescriptions on Saturday. Follow-up with her outpatient psychiatrist/therapist for further evaluation. Return here immediately for any new, worsening, or concerning symptoms. Prescriptions: QUEtiapine [SEROquel] 100 mg PO HS #1 tablet Is patient prescribed a controlled substance at d/c from ED?: No Referrals: Negra Valerio MD [Primary Care Provider] - 1-2 days Time of Disposition: 23:18
[2017-10-19 21:58] LABS: Cocaine Screen,Urine Detected (NotDetected); Phencyclidine Screen,Urine Not Detected (NotDetected); Urn Cannabinoid Scrn Detected (NotDetected)
[2017-10-19 21:59] LABS: Amphetamine Screen,Urine Not Detected (NotDetected); Barbiturate Screen,Urine Not Detected (NotDetected); Benzodiazepines Screen,Urine Not Detected (NotDetected); Methadone Screen, Urine Not Detected (NotDetected); Opiate Screen,Urine Not Detected (NotDetected); Oxycodone Screen, Urine Not Detected (NotDetected); Tricyclic Antidepressant,Urine Not Detected (NotDetected)
[2017-10-19] MEDS ORDERED: QUEtiapine 100 MG TAB PO STA (23:17)
[2017-10-19 23:31] VITALS: BP 128/60; PULSE 66; RESP 16; TEMP 97.6
== END 2017-10-19 23:37 | disposition home or self-care (01) ==
LOC: EC 21:10
DX: F41.0 Panic disorder [episodic paroxysmal anxiety] (principal); R44.0 Auditory hallucinations; F17.200 Nicotine dependence, unspecified, uncomplicated; Z85.831 Personal history of malignant neoplasm of soft tissue; Z98.890 Other specified postprocedural states
CPT/HCPCS: 36415; 80306; 82075; 99284

== ENCOUNTER 2017-10-24 18:47 | Inpatient (IN) | payer MEDICAID, OTHER ==
--- NOTE | 2017-10-24 19:21 | ED ---
General Adult HPI - General Source: patient, RN notes reviewed, old records reviewed Mode of arrival: ambulatory Limitations: no limitations <Tanner Zee - Last Filed: 10/24/17 19:21> <Angel Rangel - Last Filed: 10/25/17 00:25> - General Chief complaint: Psychiatric Symptoms Stated complaint: Mental Health Time Seen by Provider: 10/24/17 18:48 - History of Present Illness Initial comments: This is a 37-year-old female the ER for evaluation of psychiatric illness. Patient brought in first suicidal ideation, positive EtOH (Tanner Zee) - Related Data Home Medications Medication Instructions Recorded Confirmed Albuterol Inhaler [Ventolin Hfa 1 - 2 puff INHALATION RT-Q6H PRN 10/24/17 Inhaler] traZODone HCL 50 mg PO HS 10/24/17 10/24/17 Previous Rx's Medication Instructions Recorded Budesonide/Formoterol Fumarate 2 puff INHALATION RT-BID 30 Days 10/16/17 [Symbicort 80-4.5 Mcg Inhaler] #2 hfa.aer.ad Divalproex [Depakote] 500 mg PO BID 30 Days #60 tablet. 10/16/17 Gabapentin [Neurontin] 800 mg PO TID 30 Days #90 cap 10/16/17 Lisinopril [Zestril] 5 mg PO DAILY 30 Days #30 tab 10/16/17 Naproxen [Naprosyn] 500 mg PO BID 30 Days #60 tab 10/16/17 QUEtiapine [SEROquel] 100 mg PO HS 30 Days #30 tab 10/16/17 Allergies Allergy/AdvReac Type Severity Reaction Status Date / Time No Known Allergies Allergy Verified 10/19/17 21:19 Review of Systems ROS Other: All systems not noted in ROS Statement are negative. <Tanner Zee - Last Filed: 10/24/17 19:21> ROS Other: All systems not noted in ROS Statement are negative. <Angel Rangel - Last Filed: 10/25/17 00:25> ROS Statement: Those systems with pertinent positive or pertinent negative responses have been documented in the HPI. 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, scolosis History of Any Multi-Drug Resistant Organisms: None Reported Additional Past Surgical History / Comment(s): left arm Past Anesthesia/Blood Transfusion Reactions: No Reported Reaction Past Psychological History: Anxiety, Bipolar, Depression Smoking Status: Current every day smoker Past Alcohol Use History: Occasional Past Drug Use History: Marijuana <Tanner Zee - Last Filed: 10/24/17 19:21> General Exam Limitations: no limitations General appearance: alert, in no apparent distress Head exam: Present: atraumatic, normocephalic, normal inspection Eye exam: Present: normal appearance, PERRL, EOMI. Absent: scleral icterus, conjunctival injection, periorbital swelling ENT exam: Present: normal exam, mucous membranes moist Neck exam: Present: normal inspection. Absent: tenderness, meningismus, lymphadenopathy Respiratory exam: Present: normal lung sounds bilaterally. Absent: respiratory distress, wheezes, rales, rhonchi, stridor Cardiovascular Exam: Present: regular rate, normal rhythm, normal heart sounds. Absent: systolic murmur, diastolic murmur, rubs, gallop, clicks GI/Abdominal exam: Present: soft, normal bowel sounds. Absent: distended, tenderness, guarding, rebound, rigid Extremities exam: Present: normal inspection, full ROM, normal capillary refill. Absent: tenderness, pedal edema, joint swelling, calf tenderness Back exam: Present: normal inspection Neurological exam: Present: alert, oriented X3, CN II-XII intact Psychiatric exam: Present: normal affect, normal mood Skin exam: Present: warm, dry, intact, normal color. Absent: rash <Tanner Zee - Last Filed: 10/24/17 19:21> Vital Signs 10/24/17 19:05 Temperature 97.2 F L Pulse Rate 84 Respiratory 18 Rate Blood Pressure 134/61 O2 Sat by Pulse 98 Oximetry Medical Decision Making <Tanner Zee - Last Filed: 10/24/17 19:21> <Angel Rangel - Last Filed: 10/25/17 00:25> - Medical Decision Making The patient was seen in be sober and was evaluated by the psychiatric service. She will be admitted for inpatient treatment (Angel Rangel) - Lab Data Lab Results 10/24/17 Range/Units 22:50 Urine Color Light Yellow Urine Appearance Clear (Clear) Urine pH 5.5 (5.0-8.0) Ur Specific [place] 1.005 (1.001-1.035) Urine Protein Negative (Negative) Urine Glucose (UA) Negative (Negative) Urine Ketones Negative (Negative) Urine Blood Negative (Negative) Urine Nitrite Negative (Negative) Urine Bilirubin Negative (Negative) Urine Urobilinogen <2.0 (<2.0) mg/dL Ur Leukocyte Esterase Moderate H (Negative) Urine RBC 1 (0-5) /hpf Urine WBC 1 (0-5) /hpf Ur Squamous Epith Cells 8 H (0-4) /hpf Urine Mucus Rare H (None) /hpf Urine Opiates Screen Not Detected (NotDetected) Ur Oxycodone Screen Not Detected (NotDetected) Urine Methadone Screen Not Detected (NotDetected) Ur Propoxyphene Screen Not Detected (NotDetected) Ur Barbiturates Screen Not Detected (NotDetected) U Tricyclic Antidepress Not Detected (NotDetected) Ur Phencyclidine Scrn Not Detected (NotDetected) Ur Amphetamines Screen Not Detected (NotDetected) U Methamphetamines Scrn Not Detected (NotDetected) U Benzodiazepines Scrn Not Detected (NotDetected) Urine Cocaine Screen Not Detected (NotDetected) U Marijuana (THC) Screen Detected H (NotDetected) Disposition <Tanner Zee - Last Filed: 10/24/17 19:21> <Angel Rangel - Last Filed: 10/25/17 00:25> Clinical Impression: Major depression, Alcohol intoxication Disposition: TRANSFER TO PSYCH HOSP/UNIT Condition: Stable Referrals: Negra Valerio MD [Primary Care Provider] - 1-2 days
[2017-10-24 23:00] LABS: Appearance,Urine Clear (Clear); Bilirubin,Urine Negative (Negative); Blood,Urine Negative (Negative); Color,Urine Light Yellow; Glucose,Urine (UA) Negative (Negative); Ketones,Urine Negative (Negative); Leukocyte Esterase,Urine Moderate (Negative); Mucus,Urine Rare /hpf; Nitrite,Urine Negative (Negative); PH, Urine 5.5 (5.0-8.0); Protein,Urine Negative (Negative); RBC,Urine 1 /hpf (0-5); Specific Gravity,Urine 1.005 (1.001-1.035); Squamous Epithelial Cell,Urine 8 /hpf (0-4); Urobilinogen,Urine <2.0 mg/dL (<2.0); WBC,Urine 1 /hpf (0-5)
[2017-10-24 23:08] LABS: Amphetamine Screen,Urine Not Detected (NotDetected); Barbiturate Screen,Urine Not Detected (NotDetected); Benzodiazepines Screen,Urine Not Detected (NotDetected); Cocaine Screen,Urine Not Detected (NotDetected); Methadone Screen, Urine Not Detected (NotDetected); Opiate Screen,Urine Not Detected (NotDetected); Oxycodone Screen, Urine Not Detected (NotDetected); Phencyclidine Screen,Urine Not Detected (NotDetected); Tricyclic Antidepressant,Urine Not Detected (NotDetected); Urn Cannabinoid Scrn Detected (NotDetected)
[2017-10-25] MEDS ORDERED: MAG HYDROX/AL HYDROX/SIMETH 30 ML CUP PO PRN (00:53)
[2017-10-25] MEDS ORDERED: MAGNESIUM HYDROXIDE 2,400 MG/10 ML CUP PO PRN (00:53)
[2017-10-25] MEDS: ACETAMINOPHEN TAB 325 MG TAB PO PRN ×2 (03:22→10:36)
[2017-10-25] MEDS: LORazepam 1 MG TAB PO PRN ×3 (03:23→19:19)
[2017-10-25 03:34] VITALS: BMI 31.6
--- NOTE | 2017-10-25 06:36 | P.CONS ---
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, scolosis History of Any Multi-Drug Resistant Organisms: None Reported Additional Past Surgical History / Comment(s): left arm Past Anesthesia/Blood Transfusion Reactions: No Reported Reaction Past Psychological History: Anxiety, Bipolar, Depression Smoking Status: Current every day smoker Past Alcohol Use History: Occasional Past Drug Use History: Marijuana Laboratory Results - last 24 hr 10/24/17 22:50 Urine Color Light Yellow Urine Appearance Clear Urine pH 5.5 Ur Specific [place] 1.005 Urine Protein Negative Urine Glucose (UA) Negative Urine Ketones Negative Urine Blood Negative Urine Nitrite Negative Urine Bilirubin Negative Urine Urobilinogen <2.0 Ur Leukocyte Esterase Moderate H Urine RBC 1 Urine WBC 1 Ur Squamous Epith Cells 8 H Urine Mucus Rare H Urine Opiates Screen Not Detected Ur Oxycodone Screen Not Detected Urine Methadone Screen Not Detected Ur Propoxyphene Screen Not Detected Ur Barbiturates Screen Not Detected U Tricyclic Antidepress Not Detected Ur Phencyclidine Scrn Not Detected Ur Amphetamines Screen Not Detected U Methamphetamines Scrn Not Detected U Benzodiazepines Scrn Not Detected Urine Cocaine Screen Not Detected U Marijuana (THC) Screen Detected H Vital Signs - 24 hr 10/24/17 10/25/17 10/25/17 19:05 00:24 03:21 Temperature 97.2 F L 97.2 F L 97.2 F L Pulse Rate 84 75 Pulse Rate [ 81 Right Sitting] Respiratory 18 20 15 Rate Blood Pressure 134/61 113/60 Blood Pressure 119/76 [Right Arm Sitting] O2 Sat by Pulse 98 99 Oximetry Constitutional: No acute distress, conversant, pleasant Eyes: Anicteric sclerae, moist conjunctiva, ENMT: Carotid and grossly intact Neck: No obvious rigidity Lungs: Clear to auscultation Clear to percussion Normal respiratory effort, no accessory muscle use Cardiovascular: Heart regular in rate and rhythm, Abdominal: Soft Nontender, no guarding, Skin: Warm to touch Extremities: No digital cyanosis Psychiatric:Alert and oriented Neuro: No obvious weakness Assessment and plan major depression management as per psychiatry Diabetes resume all medications Medically stable 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, scolosis History of Any Multi-Drug Resistant Organisms: None Reported Additional Past Surgical History / Comment(s): left arm Past Anesthesia/Blood Transfusion Reactions: No Reported Reaction Smoking Status: Current some day smoker Medications and Allergies Home Medications Medication Instructions Recorded Confirmed Type Budesonide/Formoterol Fumarate 2 puff INHALATION RT-BID 30 Days 10/16/17 Rx [Symbicort 80-4.5 Mcg Inhaler] #2 hfa.aer.ad Divalproex [Depakote] 500 mg PO BID 30 Days #60 tablet.dr 10/16/17 10/25/17 Rx Gabapentin [Neurontin] 800 mg PO TID 30 Days #90 cap 10/16/17 10/25/17 Rx Lisinopril [Zestril] 5 mg PO DAILY 30 Days #30 tab 10/16/17 10/25/17 Rx Naproxen [Naprosyn] 500 mg PO BID 30 Days #60 tab 10/16/17 10/25/17 Rx QUEtiapine [SEROquel] 100 mg PO HS 30 Days #30 tab 10/16/17 10/25/17 Rx Albuterol Inhaler [Ventolin Hfa 1 - 2 puff INHALATION RT-Q6H PRN 10/24/17 History Inhaler] traZODone HCL 50 mg PO HS 10/24/17 10/25/17 History Allergies Allergy/AdvReac Type Severity Reaction Status Date / Time No Known Allergies Allergy Verified 10/25/17 03:06 Physical Exam Vitals: Vital Signs Temp Pulse Pulse Resp BP BP Pulse Ox 10/25/17 03:21 97.2 F L 81 15 119/76 10/25/17 00:24 97.2 F L 75 20 113/60 99 10/24/17 19:05 97.2 F L 84 18 134/61 98 Intake and Output 10/24/17 10/24/17 10/25/17 14:59 22:59 06:59 Other: Weight 77.111 kg 78.4 kg Results Labs: Abnormal Lab Results - Last 24 Hours (Table) 10/24/17 Range/Units 22:50 Ur Leukocyte Esterase Moderate H (Negative) Ur Squamous Epith Cells 8 H (0-4) /hpf Urine Mucus Rare H (None) /hpf U Marijuana (THC) Screen Detected H (NotDetected)
[2017-10-25] MEDS: NICOTINE 14MG/24HR PATCH TRANSDERM SCH (08:29)
[2017-10-25 09:31] LABS: Basophils % (A) 0 %; Eosinophils # (A) 0.2 k/uL (0-0.7); Eosinophils % (A) 4 %; HCT 39.8 % (34.0-46.0); HGB 13.5 gm/dL (11.4-16.0); Lymphocytes # (A) 1.9 k/uL (1.0-4.8); Lymphocytes % (A) 34 %; MCH 31.2 pg (25.0-35.0); MCV 91.7 fL (80.0-100.0); Monocytes # (A) 0.3 k/uL (0-1.0); Monocytes % (A) 6 %; Neutrophils # (A) 2.9 k/uL (1.3-7.7); Neutrophils % (A) 54 %; Platelet Count 318 k/uL (150-450); RBC 4.34 m/uL (3.80-5.40); RDW 13.5 % (11.5-15.5); WBC 5.5 k/uL (3.8-10.6)
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
[2017-10-25 09:51] LABS: ALT 28 U/L (9-52); AST 29 U/L (14-36); Albumin 4.1 g/dL (3.5-5.0); Alkaline Phosphatase 78 U/L (38-126); Anion Gap 12 mmol/L; Blood Urea Nitrogen 17 mg/dL (7-17); Calcium 9.4 mg/dL (8.4-10.2); Carbon Dioxide 24 mmol/L (22-30); Chloride 105 mmol/L (98-107); Cholesterol 205 mg/dL (<200); Glucose 156 mg/dL (74-99); HDL Cholesterol 56 mg/dL (40-60); LDL Cholesterol,Calculated 91 mg/dL (0-99); Potassium 4.8 mmol/L (3.5-5.1); Sodium 141 mmol/L (137-145); Total Bilirubin 0.3 mg/dL (0.2-1.3); Total Protein 6.8 g/dL (6.3-8.2); Triglycerides 290 mg/dL (<150)
[2017-10-25] MEDS: ESCITALOPRAM 10 MG TAB PO SCH (17:51)
[2017-10-25 17:58] LABS: Glucose,Whole Blood 104 mg/dL (75-99)
[2017-10-25 18:49] LABS: Hemoglobin A1C 6.1 % (4.0-6.0)
[2017-10-25 21:27] LABS: Glucose,Whole Blood 108 mg/dL (75-99)
[2017-10-26] MEDS: LORazepam 1 MG TAB PO PRN ×3 (01:37→17:22)
[2017-10-26] MEDS: NICOTINE 14MG/24HR PATCH TRANSDERM SCH (08:23)
[2017-10-26] MEDS: ESCITALOPRAM 10 MG TAB PO SCH (08:23)
[2017-10-26] MEDS: ACETAMINOPHEN TAB 325 MG TAB PO PRN (10:06)
--- NOTE | 2017-10-26 16:33 | P.PN ---
Progress Note - Text Progress Note Date: 10/26/17 Interval history: Patient seen in cross coverage today. She describes some frustration for not being on her Neurontin and also is not on her blood pressure medication. She is currently on Lexapro. She seems to describe overall her mood is doing better. She is concerned about on sleep at night. Mental status exam: She is alert and cooperative with the interview. Her speech is fluent, thought processes are organized. She does not verbalize any thoughts of harm to self or others. No evidence of psychosis or agitation. Plan: Patient will be maintained on Lexapro as current. We'll explore why she may not be on some the other recent medications. We'll continue to cover this patient for the weekend.
[2017-10-26] MEDS: MELATONIN 3 MG TABLET PO SCH (23:11)
[2017-10-27] MEDS: LORazepam 1 MG TAB PO PRN ×3 (00:22→16:33)
[2017-10-27] MEDS: ACETAMINOPHEN TAB 325 MG TAB PO PRN ×3 (00:22→16:33)
[2017-10-27 06:45] VITALS: RESP 16
[2017-10-27] MEDS: NICOTINE 14MG/24HR PATCH TRANSDERM SCH (08:36)
[2017-10-27] MEDS: ESCITALOPRAM 10 MG TAB PO SCH (08:36)
--- NOTE | 2017-10-27 13:06 | P.PN ---
Progress Note - Text Progress Note Date: 10/27/17 Interval history: Patient is seen again in cross coverage today. She does relay that she slept 8 hours last night. She was placed on melatonin last night. She does not seem to voice any adverse psychotropic medication side effects. Her mood is improved. She talks about looking for possible discharge tomorrow. Mental status exam: She is alert and cooperative with the interview. Her affect shows range. Her mood is improved. She does not verbalize any thoughts of harm to self or others. There is no evidence of psychosis or agitation. Plan: Patient will be maintained on current psychotropic medication regimen. We will monitor for any medication side effects and for her ongoing response. Status is improved.
[2017-10-27] MEDS: MELATONIN 3 MG TABLET PO SCH (20:59)
[2017-10-28] MEDS: LORazepam 1 MG TAB PO PRN ×2 (00:20→08:44)
[2017-10-28] MEDS: ACETAMINOPHEN TAB 325 MG TAB PO PRN (00:20)
[2017-10-28 07:03] VITALS: BP 109/57; PULSE 62; TEMP 97.8
[2017-10-28] MEDS: ESCITALOPRAM 10 MG TAB PO SCH (08:44)
[2017-10-28] MEDS: NICOTINE 14MG/24HR PATCH TRANSDERM SCH (08:44)
--- NOTE | 2017-10-28 08:47 | P.DS ---
Providers Date of admission: 10/25/17 00:25 Expected date of discharge: 10/28/17 Attending physician: Vlad Sutton Consults: 10/25/17 00:53 Consult Physician Routine Consulting Provider: Rosmery Price Consult Reason/Comments: medical management Do you want consulting provider notified?: Yes, Notify in am Primary care physician: [facility] Course: And had her psychiatric evaluation, physical examination and psychosocial evaluation. She was continued on Lexapro 10 mg a day per her request/demand. She participated in groups, socialized with peers and interacted with staff members. She took her Lexapro without any adverse effects. Even though she was started on Lexapro 10 mg a day on the , today she said she is feeling very well, is sleeping well, does not feel depressed or nervous and continues to deny suicide and homicide thoughts. She said she is going back to her mother friend who lives with his parents. Since patient's condition is not considered to be due to any major psychiatric illness it was agreed to discharge her today. Condition on discharge: This is a white ambulatory female with good hygiene. She is polite cheerful and cooperative. Her speech is spontaneous relevant and goal-directed. Her mood is cheerful and affect is appropriate to the thought content she continues to deny suicide and homicide thoughts. She also denies hallucinations and delusional thinking. She is well oriented with adequate memory concentration etc. her insight is fair and judgment is improving. Diagnosis on discharge: Adjustment disorder, unspecified F 43.20. Cannabis use disorder severe F 12.20. Alcohol use disorder severe F 10.20. Cocaine use disorder moderate F 14.20. 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 Probable malingering Z 76.5. Patient was advised and agreed to take her medications as prescribed, to seek counseling/rehab regarding her alcohol and substance abuse, learn better coping skills through therapy, to inform her doctor if she gets , to call her psychiatrist/therapist if she gets any thoughts of suicide and if she cannot get hold of them to go to nearest ER. Patient Condition at Discharge: Good Plan - Discharge Summary Discharge Rx Participant: No New Discharge Prescriptions: New Escitalopram [Lexapro] 10 mg PO DAILY 30 Days #30 tab Melatonin 3 mg PO HS tablet Continue Gabapentin [Neurontin] 800 mg PO TID 30 Days #90 cap Naproxen [Naprosyn] 500 mg PO BID 30 Days #60 tab Albuterol Inhaler [Ventolin Hfa Inhaler] 1 - 2 puff INHALATION RT-Q6H PRN PRN Reason: Shortness Of Breath Discontinued Divalproex [Depakote] 500 mg PO BID 30 Days #60 tablet.dr Lisinopril [Zestril] 5 mg PO DAILY 30 Days #30 tab QUEtiapine [SEROquel] 100 mg PO HS 30 Days #30 tab Budesonide/Formoterol Fumarate [Symbicort 80-4.5 Mcg Inhaler] 2 puff INHALATION RT-BID 30 Days #2 hfa.aer.ad traZODone HCL 50 mg PO HS Discharge Medication List Gabapentin [Neurontin] 800 mg PO TID 30 Days #90 cap 10/16/17 [Rx] Naproxen [Naprosyn] 500 mg PO BID 30 Days #60 tab 10/16/17 [Rx] Albuterol Inhaler [Ventolin Hfa Inhaler] 1 - 2 puff INHALATION RT-Q6H PRN [History] Escitalopram [Lexapro] 10 mg PO DAILY 30 Days #30 tab 10/28/17 [Rx] Melatonin 3 mg PO HS tablet 10/28/17 [Rx] Follow up Appointment(s)/Referral(s): Negra Valerio MD [Primary Care Provider] - 1-2 days
== END 2017-10-28 09:46 | disposition home or self-care (01) | DRG 882 ==
LOC: EC 18:47 → 3MHU 10-25 00:25
PROVIDERS: ADMIT Psychiatry & Neurology Psychiatry; ATTEND Psychiatry & Neurology Psychiatry
DX: F43.20 Adjustment disorder, unspecified (principal); F14.20 Cocaine dependence, uncomplicated; R45.851 Suicidal ideations; F12.20 Cannabis dependence, uncomplicated; Z76.5 Malingerer [conscious simulation]; E11.9 Type 2 diabetes mellitus without complications; F10.129 Alcohol abuse with intoxication, unspecified; F17.200 Nicotine dependence, unspecified, uncomplicated; F32.9 Major depressive disorder, single episode, unspecified; F43.22 Adjustment disorder with anxiety; F60.9 Personality disorder, unspecified; Z59.0 Homelessness; Z79.899 Other long term (current) drug therapy
CPT/HCPCS: 80053; 80061; 80164; 80306; 81001; 82075; 83036; 84443; 85025; 99285

== ENCOUNTER 2018-01-15 22:15 | Emergency (ER) | payer MEDICAID, OTHER ==
[2018-01-15 22:47] VITALS: RESP 18; TEMP 98.6
[2018-01-15] MEDS ORDERED: LORazepam 2 MG/ML INJ IV STA (23:02)
[2018-01-15] MEDS ORDERED: SODIUM CHLORIDE 0.9% 1,000 ML IV ONE (23:02)
[2018-01-15] MEDS ORDERED: KETOROLAC 30 MG/ML 1 ML VIAL IVP STA (23:03)
[2018-01-15 23:56] LABS: Anisocytosis Slight; Basophils % (A) 1 %; Eosinophils # (A) 0.1 k/uL (0-0.7); Eosinophils % (A) 1 %; HCT 46.3 % (34.0-46.0); HGB 15.2 gm/dL (11.4-16.0); Lymphocytes # (A) 1.4 k/uL (1.0-4.8); Lymphocytes % (A) 22 %; MCH 31.5 pg (25.0-35.0); MCHC 32.8 g/dL (31.0-37.0); Mean Platelet Volume 6.8; Monocytes # (A) 0.3 k/uL (0-1.0); Monocytes % (A) 4 %; Neutrophils # (A) 4.5 k/uL (1.3-7.7); Neutrophils % (A) 70 %; Platelet Count 237 k/uL (150-450); RBC 4.82 m/uL (3.80-5.40); RDW 16.2 % (11.5-15.5); WBC 6.4 k/uL (3.8-10.6)
[2018-01-16 00:08] LABS: ALT 35 U/L (9-52); AST 38 U/L (14-36); Albumin 4.7 g/dL (3.5-5.0); Alkaline Phosphatase 78 U/L (38-126); Amylase 57 U/L (30-110); Anion Gap 12 mmol/L; Blood Urea Nitrogen 14 mg/dL (7-17); Calcium 9.6 mg/dL (8.4-10.2); Carbon Dioxide 22 mmol/L (22-30); Chloride 105 mmol/L (98-107); Glucose 120 mg/dL (74-99); Lipase 48 U/L (23-300); Potassium 4.8 mmol/L (3.5-5.1); Sodium 139 mmol/L (137-145); Total Bilirubin 0.3 mg/dL (0.2-1.3); Total Protein 7.9 g/dL (6.3-8.2)
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
[2018-01-16 00:15] LABS: Alcohol 102 mg/dL
[2018-01-16 00:39] LABS: Appearance,Urine Clear (Clear); Bilirubin,Urine Negative (Negative); Blood,Urine Negative (Negative); Color,Urine Yellow; Glucose,Urine (UA) Negative (Negative); Ketones,Urine Negative (Negative); Leukocyte Esterase,Urine Small (Negative); Mucus,Urine Rare /hpf; Nitrite,Urine Negative (Negative); Protein,Urine Trace (Negative); RBC,Urine 1 /hpf (0-5); Specific Gravity,Urine 1.018 (1.001-1.035); Squamous Epithelial Cell,Urine 4 /hpf (0-4); Urobilinogen,Urine <2.0 mg/dL (<2.0); WBC,Urine 2 /hpf (0-5)
--- NOTE | 2018-01-16 00:57 | XR ---
EXAMINATION TYPE: XR chest 2V DATE OF EXAM: 01/16/2018 COMPARISON: 10/12/2017 HISTORY: Chest pain TECHNIQUE: Frontal and lateral views of the chest are obtained. FINDINGS: There is no heart failure nor confluent pneumonic infiltrate. There is no sign of pleural effusion or pneumothorax. Heart and mediastinum are normal. Bony thorax appears intact. IMPRESSION: Normal chest. No change.
--- NOTE | 2018-01-16 00:59 | XR ---
EXAMINATION TYPE: XR foot complete RT DATE OF EXAM: 01/16/2018 COMPARISON: NONE HISTORY: Pain TECHNIQUE: 3 views FINDINGS: Metatarsals are intact. I see no fracture nor dislocation. There are no erosions. Joint spa jing are normal. There are webbed toes between second and third and third and fourth toes. IMPRESSION: Negative right foot exam.
[2018-01-16] MEDS ORDERED: metroNIDAZOLE 500 MG TAB PO STA (01:11)
[2018-01-16] MEDS ORDERED: cefTRIAXone 250 MG VIAL IM STA (01:11)
[2018-01-16] MEDS ORDERED: AZITHROMYCIN 500 MG TAB PO STA (01:11)
[2018-01-16 01:45] VITALS: BP 127/75; PULSE 93
== END 2018-01-16 01:47 | disposition home or self-care (01) ==
LOC: EC 22:15
DX: T74.21XA Adult sexual abuse, confirmed, initial encounter (principal); F31.9 Bipolar disorder, unspecified; F41.9 Anxiety disorder, unspecified; F17.200 Nicotine dependence, unspecified, uncomplicated; Z79.899 Other long term (current) drug therapy; Z85.831 Personal history of malignant neoplasm of soft tissue; Z98.890 Other specified postprocedural states; Y07.59 Other non-family member, perpetrator of maltreatment and neglect; Y92.009 Unspecified place in unspecified non-institutional (private) residence as the place of occurrence of the external cause
CPT/HCPCS: 36415; 80053; 82150; 83690; 85025; 81001; 81025; 80320; 87086; 73630; 71046; 99285; 96374; 96375; 96361; 96372; J2060; J0696; J1885

== ENCOUNTER 2018-01-16 20:25 | Emergency (ER) | payer OTHER ==
[2018-01-16 20:44] VITALS: TEMP 98.2
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
[2018-01-16] MEDS ORDERED: SODIUM CHLORIDE 0.9% 1,000 ML IV ONE (21:39)
[2018-01-16 22:08] LABS: Basophils % (A) 0 %; Eosinophils # (A) 0.2 k/uL (0-0.7); Eosinophils % (A) 2 %; HCT 41.2 % (34.0-46.0); HGB 13.3 gm/dL (11.4-16.0); Lymphocytes # (A) 2.6 k/uL (1.0-4.8); Lymphocytes % (A) 25 %; MCH 30.8 pg (25.0-35.0); MCHC 32.4 g/dL (31.0-37.0); MCV 95.2 fL (80.0-100.0); Mean Platelet Volume 7.2; Monocytes # (A) 0.5 k/uL (0-1.0); Monocytes % (A) 5 %; Neutrophils # (A) 6.9 k/uL (1.3-7.7); Neutrophils % (A) 66 %; Platelet Count 193 k/uL (150-450); RBC 4.32 m/uL (3.80-5.40); RDW 15.5 % (11.5-15.5); WBC 10.4 k/uL (3.8-10.6)
[2018-01-16 22:18] LABS: ALT 30 U/L (9-52); AST 28 U/L (14-36); Albumin 4.2 g/dL (3.5-5.0); Alcohol <10 mg/dL; Alkaline Phosphatase 71 U/L (38-126); Anion Gap 10 mmol/L; Blood Urea Nitrogen 16 mg/dL (7-17); Calcium 9.3 mg/dL (8.4-10.2); Carbon Dioxide 21 mmol/L (22-30); Chloride 105 mmol/L (98-107); Glucose 101 mg/dL (74-99); Lipase 87 U/L (23-300); Potassium 4.1 mmol/L (3.5-5.1); Sodium 136 mmol/L (137-145); Total Bilirubin 0.5 mg/dL (0.2-1.3); Total Protein 7.1 g/dL (6.3-8.2)
[2018-01-16] MEDS ORDERED: chlordiazePOXIDE 25 MG CAP PO STA (22:22)
[2018-01-16] MEDS ORDERED: IPRATROPIUM-ALBUTEROL 3 ML NEB INHALATION STA (23:17)
--- NOTE | 2018-01-17 00:31 | XR ---
EXAMINATION TYPE: XR chest 2V DATE OF EXAM: 01/17/2018 COMPARISON: January 16, 2018 HISTORY: Chest pain TECHNIQUE: Frontal and lateral views of the chest are obtained. FINDINGS: Heart and mediastinum are normal. Lungs are clear. Diaphragm is normal. Bony thorax appear s normal. IMPRESSION: Normal chest. No change.
[2018-01-17 03:00] VITALS: BP 126/74; PULSE 89; RESP 18
== END 2018-01-17 03:00 | disposition home or self-care (01) ==
LOC: EC 20:25
DX: S39.012A Strain of muscle, fascia and tendon of lower back, initial encounter (principal); F10.239 Alcohol dependence with withdrawal, unspecified; F31.9 Bipolar disorder, unspecified; F41.9 Anxiety disorder, unspecified; F17.200 Nicotine dependence, unspecified, uncomplicated; Z79.899 Other long term (current) drug therapy; Z85.831 Personal history of malignant neoplasm of soft tissue; Z98.890 Other specified postprocedural states; X58.XXXA Exposure to other specified factors, initial encounter
CPT/HCPCS: 36415; 71046; 80053; 80320; 83690; 84484; 85025; 85379; 93005; 94640; 96360; 99284